=== PATIENT | female | born 1965 ===

== ENCOUNTER 2022-10-25 14:08 | Outpatient (CLI) | payer OTHER, SELFPAY ==
--- NOTE | 2022-10-25 14:20 | CRLHL7_ITS ---
For Patients: As a result of the Century Cures Act, medical imaging exams and procedure reports are released immediately into your electronic medical record. You may view this report before your referring provider. If you have questions, please contact your health care provider. BILATERAL SCREENING MAMMOGRAM WITH COMPUTER-AIDED DETECTION AND TOMOSYNTHESIS TECHNIQUE: CC and MLO views were obtained. These mammographic images have been obtained using full-field digital technique. These mammographic images were interpreted with the benefit of computer-aided detection. Breast tomosynthesis was used in this interpretation. COMPARISON FILM: 09/13/20, 03/14/18, 01/03/17. FINDINGS: There are scattered areas of fibroglandular density. IMPRESSION: There is no radiographic evidence for malignancy. ASSESSMENT: BI-RADS Category 1: Negative RECOMMENDATION: Routine screening mammogram in 1 year. A lay language report of this examination will be provided to the patient. CARSON YOO M.D. Diagnostic Radiologist [email or web address] DALIA/mark Transcribed: 11/05/2022, 1:[address]/Dictated by: Carson Yoo MD @ 11/05/2022 10:28:00 AM (Electronically Signed)
== END 2022-10-25 14:09 | disposition home or self-care (01) ==
LOC: MAMMO 14:13
PROVIDERS: Visit Provider Nurse Practitioner Family
DX: Z12.31 Encounter for screening mammogram for malignant neoplasm of breast (principal)
CPT/HCPCS: 77063; 77067

== ENCOUNTER 2024-04-14 03:30 | Emergency (ER) | payer OTHER, SELFPAY ==
--- OUTSIDE RECORDS SUMMARY | 2024-04-14 03:31 | XMS_ITS | Clinical Summary ---
Author Organization [facility] Address [place], [place] [address] Care Team Providers Care Parachute Crown Sewer Name Role Phone None Primary Care Provider Unavailabl e Allergies Active Allergy Reactions Criticality Noted Date Comments Penicillins Rash 02/12/2007 Medications gabapentin (NEURONTIN) 100 mg capsuleIndications :Cervical radiculopathy at C7 TAKE 1 CAPSULE BY MOUTH THREE TIMES DAILY 270 Capsule 1 1 Active triamcinolone (ARISTOCORT; KENALOG) 0.1 % creamIndications:R sonja and nonspecific skin eruption Apply topically to affected area(s) 2 times daily. 45 g 1 Active naproxen (ANAPROX DS) 550 mg tabletIndications: Pain in finger of both hands,Bilateral hand swelling Take 1 Tablet (550 mg) by mouth 2 times daily with meals. 60 Tablet 1 Active naproxen (ANAPROX DS) 550 mg tabletIndications: Pain in finger of both hands Take 1 Tablet (550 mg) by mouth every 12 hours if needed for Pain. 60 tablet. 1 1 Active naproxen (NAPROSYN) 500 mg tabletIndications: Pain in finger of both hands,Bilateral hand swelling Take 1 Tablet (500 mg) by mouth 2 times daily. 60 tablet. 1 1 Active Active Problems Problem Noted Date Diagnosed Date Cervical radiculopathy at C7 06/02/2020 Vitamin D deficiency 01/31/2020 Overview (01/31/2020): January 2020: vitamin D 20. Gallbladder polyp 12/23/2018 Overview (09/12/2020): 5 mm, noted on US Dec 2018. Recheck US in one year. US September 2020 polyp is stable. Follow up one year. Poor sleep hygiene 12/16/2018 Neck pain, chronic 11/12/2018 Overview (11/12/2018): Nov 2018: Cervical Spine Epidural steroid injection: left paracentral interlaminar approach BECKI (obstructive sleep apnea) 08/12/2018 Urinary, incontinence, stress female 11/24/2013 Mixed hearing loss, bilateral 11/13/2013 Varicose veins of leg with pain 10/30/2013 Prediabetes 12/15/2012 Trigger finger (acquired) Right 3rd digit 2011 BPPV (benign paroxysmal positional vertigo) 05/09 Tennis elbow 03/02/2009 Overview (10/27/2012): Right; now improved Left now involved 10/27/2012 Routine general medical exam ination at a health care facility 03/02/2009 ASCUS with positive high risk HPV cervical 04/08 Overview (02/22/2020): 1996 Cryocautery of cervix. 02/2008 ASCUS/HPV+ 03/2008 [place]: ECC Negative 09/2008 ASCUS/HPV+ 10/2011 ASCUS/HPV Negative 12/2016 NIL/HPV negative 01/29/20 NIL/HPV negative Plan: Routine screening Resolved Problems Problem Noted Date Diagnosed Date Resolved Date Carpal Tunnel Syndrome- bilateral 06/06/2009 10/27/2012 Carpal tunnel syndrome 05/18/200906/06 ASCUS on Pap smear 03/02/2009 7 Overview (03/02/2009): S/P Colposcopy 09/2008: Recheck Pap in 12 months Immunizations Name Administration Dates Next Due AMB Influenza, IIV3 (Age >=3 years)(Flu Clinic Only) 01/14/2013,01/22/2012,01/19/2009 AMB Influenza, IIV4 PF (=>6 mos Flulaval,Fluzone Fluarix)(Flu Clinic Only) 01/22/2020,12/31/2014 COVID-19 vaccine ([employer] 30mcg/0.3mL) PF, MDV 04/12/2021,07/28/2020,07/07/2020 Influenza, IIV3 (Age >=3 years) 01/11/2011,02/09 Influenza, IIV4 12/18/2018,03/14/2018,12/21/2013 Td (Age >=7 Years) 06/28/2003 Tdap 02/04/2012 Family History Medical History Relation Name Comments Diabetes Father Tripp Hyperlipidemia Mother Sofya Hypertension Mother Sofya Diabetes Paternal Grandmother Other Sister 3 Pilar kidney disease; now has seizure problems Cancer-breast No Family History Cancer-ovarian No Family History Relation Name Status Comments Brother 1 Brody Alive Brother 2 Tripp Alive Daughter 1 Alive Daughter 2 Alive Father Tripp Alive Half-Sister Alive Maternal Grandfather Maternal Grandmother Mother Sofya Paternal Grandfather Paternal Grandmother Sister 1 Marcia Alive Sister 2 Fiordaliza Alive Sister 3 Pilar Alive Son Alive Social History Tobacco Use Types Packs/Day Years Used Date Smoking Tobacco: Never Smokeless Tobacco: Never Tobacco Cessation:Counseling Given: Yes Alcohol Use Standard Drinks/Week Comments No 0 (1 standard drink = 0.6 oz pure alcohol) infrequent-- 1 drink every year. PHQ-2 Answer Date Recorded PHQ-2 TOTAL SCORE 0 01/29/2020 Social Connections Answer Date Recorded Frequency of Communication with Friends and Fami ly Not on file 04/08/2021 Financial Resource Strain Answer Date R ecorded Difficulty of Paying Living Expenses Not on file 04/08/2021 Difficulty of Paying Living Expenses Not on file 04/08/2021 Comments No Sex and Gender Information Value Date Recorded Sex Assigned at Not on file Legal Sex Female 5:19 AM CORE FINISHER Gender Identity Not on file Sexual Orientation Not on file Occupation Industry Job Start Date Job End Date work at home Not on file Not on file Not on file Obstetrics History Para Term AB IAB SAB Ectopic Multiple Livin g Live Births 4 3 3 0 1 0 1 0 0 3 Date Outcome GA Total Labor Labor/2nd/3rd Weight Sex Type Anes PTL Ksenia A1 A5 Name Clin SAB 1987 Term Comments:C Sec 1996 Term 2003 Term Last Filed Vital Signs Vital Sign Reading Time Taken Comments Blood Pressure 117/65 12/05/2022 5:14 PM CDT Pulse 91 12/05/2022 5:14 PM CDT Temperature 36.6 C (97.8 F) 12/05/2022 5:14 PM CDT Respiratory Rate 16 12/05/2022 5:14 PM CDT Oxygen Saturation 96% 12/05/2022 5:14 PM CDT Inhaled Oxygen Concentration - - Weight 61.2 kg (135 lb) 12/05/2022 5:14 PM CDT Height 147.5 cm (4' 10.07) 08/30/2020 3:08 PM C DT Body Mass Index 28.15 08/30/2020 3:08 PM CDT Plan of Treatment Health Maintenance Due Date Last Done Comments HIV for age 15-65 01/22/1979 Zoster (shingles) series for age 50+ (1 of 2) 01/22/2014 Depression screening for age 12+ 01/30/2021 01/31/2020, 01/29/2020, 03/17/2018, Additional history exists BMI (ht and wt on same day) for age 18+ 08/30/2021 08/30/2020, 01/29/2020, 12/18/2018, Additional history exists Mammogram for age 45-75 09/13/2021 09/14/19 21, 03/14/2018, 01/03/2017, Additional history exists Tetanus booster 02/03/2022 02/04/2012, 06/28/2003 COVID-19 vaccine series ( season) 2023 05/02/2022, 04/12/2021, 07/28/2020, Additional history exists Influenza for age 50-64 12/08/2023 01/22/20 20, 12/18/2018, 03/14/2018, Additional history exists Lipids for age 45-75 08/30/2025 08/30/2020, 01/26/2020, 01/26/2020, Additional history exists Pap test for age 21-65 08/03/2027 3, 08/02/2022, 01/29/2020, Additional history exists Colonoscopy through age 75 03/16/203003/16, 03/16/2020, 03/16/2020 RSV vaccine for adults or (1 - 1-dose 75+ series) 01/22/2039 Tdap Completed 02/04/2012 Hepatitis C screening for age 18-79 Completed 03/17/2018 Pneumococcal series for age 6-49 Aged Out No longer eligible based on patient's age to complete this topic Procedures Procedure Name Priority Date/Time Associated Diagnosis Comments HPV HIGH RISK Routine 08/02/2022 11:30 AM CDT XR MAMMO BILAT SCREENING Routine 09/13/2020 5:33 PM CDT Visit for screening mammogram LIPID PANEL W REFLEX MEASURED LDL Routine 08/30/2020 3:57 PM CDT Hypertriglyceridemi a COLONOSCOPY DIAGNOSTIC Routine 03/16/2020 9:13 AM CORE FINISHER Hematochezia ANTI HCV Routine 03/17/2018 11:28 AM CORE FINISHER Need for hepatitis C screening test from Last 3 Months or Most Recently Relevant to Health Maintenance Results * HPV HIGH RISK (08/02/2022 11:30 AM CDT) TYPE 16 Negative Negative 08/14/2022 5:31 AM CDT [facility] TYPE 18 Negative Negative 08/14/2022 5:31 AM CDT [facility] OTHER HIGH RISK TYPES Negative Negative 08/14/2022 5:31 AM CDT [facility] Other (Other) 08/02/2022 11: 30 AM CDT 08/10/2022 12:48 PM CDT Narrative [facility] - 08/14/2022 5:31 AM CDT HPV types 16, 18, 31, 33, 35, 39, 45, 51, 52, 56, 58, 59, 66 and 68 DNA were undetectable or below the pre-set threshold. Methodology: [employer] Cle[employer] 4800 HPV Test us Kaitlin Musa NP MICROBIOLOGY Final Resul t [facility] [address] [place] [address], [place] * XR MAMMO BILAT SCREENING (09/13/2020 5:33 PM CDT) Anatomical Region Laterality Modality BREASTS, Breast Left, Breast Right Bilateral Mammography Impressions 09/14/2020 2:06 PM CDT There is no radiographic evidence for malignancy. Recommend annual mammograms. MAMMOGRAM ASSESSMENT: ACR 2 Benign PATIENTS: You will also receive a letter with your examination results in an easy to read format. If you have questions about your results, please contact your referring provider. Narrative 09/14/2020 2:06 PM CDT XR MAMMO BILAT SCREENING [[id number]] CLINICAL HISTORY: This is an asymptomatic 55 y.o. patient. INDICATION FOR EXAM: Mammogram Screening. TECHNIQUE: CC & MLO views were obtained. This study was evaluated with the assistance of Computer-Aided Detection. COMPARISON FILMS: Yes [facility] FINDINGS: The breasts have scattered areas of fibroglandular density. No suspicious masses or microcalcifications. Benign appearing calcifications within both breasts. us Otoniel Loera MD MAMMO Final Res ult * (ABNORMAL) LIPID PANEL W REFLEX MEASURED LDL (08/30/2020 3:57 PM CDT) CHOLESTEROL,TOTAL 216(H) 100 - 199 mg/dL 08/30/2020 8:17 PM CDT [facility] TRIGLYCERIDES 135 <150 mg/dL 08/30/2020 8:17 PM CDT [facility] HDL CHOLESTEROL 62 >40 mg/dL 8:17 PM CDT [facility] NON-HDL CHOLESTEROL 154(H) <145 mg/dl 08/30/2020 8:17 PM CDT [facility] CHOL/HDL RATIO 3.48 <4.50 08/30/2020 8:17 PM CDT [facility] LDL CHOLESTEROL 127 <=130 mg/dL 08/30/2020 8:17 PM CDT [facility] VLDL CHOLESTEROL 27 mg/dL 08/31/19 8:17 PM CDT [facility] PROVIDER ORDERED STATUS RANDOM 08/30/2020 8:17 PM CDT [facility] Blood BLOOD SPECIMEN / Unknown Venipuncture / Unknown 08/30/2020 3:57 PM CDT 08/30/2020 3:57 PM CDT Mora SHANNON CHEMISTRY Final Resu lt [facility] [address] [place] [address], * COLONOSCOPY DIAGNOSTIC (03/16/2020 9:13 AM CORE FINISHER) Mora SHANNON GI PROCEDURE ORD Final Res ult * ANTI HCV [[id number]] (03/17/2018 11:28 AM CORE FINISHER) HEPATITIS C ANTIBODY Non-React shar Non-React shar 03/17/2018 7:59 PM CORE FINISHER [facility] Comment:Antibodies to HCV no t detected; does not exclude the possibility of exposure to HCV. Blood BLOOD SPECIMEN / Unknown Venipuncture / Unknown 03/17/2018 11:28 AM CORE FINISHER 03/17/2018 11:29 AM CORE FINISHER Alice Chairez MD SEND OUTS Final Resul t [facility] [address] [place] [address], from Last 3 Months or Most Recently Relevant to Health Maintenance Advance Directives * Full Code (Latest Code Status on File) Date Activated Date Inactivated Comments 12/17/2012 10:31 AM 12/17/2012 2:25 PM * Full Code Date Activated Date Inactivated Comments 12/17/2012 7:29 AM 12/17/2012 10:31 AM * Full Code Date Activated Date Inactivated Comments 09/22/2009 10:25 AM 09/23/2009 2:06 AM * Full Code Date Activated Date Inactivated Comments 06/16/2009 8:41 AM 06/17/2009 2:06 AM Care Teams Parachute Crown Sewer Relationship Specialty Start Date End Date None . PCP - General 12/05/22
--- OUTSIDE RECORDS SUMMARY | 2024-04-14 03:31 | XMS_ITS | Continuity of Care Document ---
Author Name [email or web address] Address Unknown Organization Unknown Address Unknown Encounters FILTER APPLIED:Only known Encounters with Admission Date within the last 5 years Encounter Location Admission Discharge Billing Code Trigonometry Teacher Carlos smith Outpatient [facility]
[2024-04-14 03:42] VITALS: BP 137/74; PULSE 109; RESP 16; TEMP 38.3; O2SAT 97; BMI 26.0
[2024-04-14 04:03] LABS: Appearance Urine Clear (Clear); Bilirubin Urine Negative (Negative); Blood Urine 2+ (Negative); Color Urine Yellow (Yellow); Glucose Urine Negative (Negative); Ketones Urine Negative (Negative); Leukocyte Esterase Urine Negative (Negative); Nitrite Urine Negative (Negative); Protein Urine Negative (Negative); Urobilinogen Urine 0.2 (0.2-1.0)
--- NOTE | 2024-04-14 04:15 | ED_ITS ---
HPI - General Adult General Chief complaint: Abdominal Pain Stated complaint: Fever chills, right side abdominal pain Time Seen by Provider: 04/14/24 03:31 Source: patient Mode of arrival: ambulatory Limitations: language barrier (Video print journalist used) History of Present Illness HPI narrative: 59-year-old female with no significant past medical history presents the emergency department with 18 hours of body aches, headache, mild nausea. Reports ?ovarian pain? but on more specific questioning it is bilateral lower abdominal pain that radiates to the left upper quadrant. No vomiting, no bloody stools, no diarrhea, no dysuria. No history of kidney stones. No known illness exposures, no trauma. Mainly concerned about the headache but has not tried taking any Tylenol or ibuprofen for it. No neurological changes. Mild cough and congestion. No obvious sick exposures. Past medical history benign per her report, no major long-term health problems. No prescription medications. Allergy to penicillin. ROS is notable for the generalized and GI symptoms as above, otherwise denies times 12 systems. Related Data Home Medications ?Medication ?Instructions ?Recorded ?Confirmed No Known Home Medications 04/14/24 04/14/24 Allergies Allergy/AdvReac Type Severity Reaction Status Date / Time Penicillins Allergy Rash Verified 04/14/24 03:47 Exam Const: Vital Signs, click to edit/add: Vital Signs - 24 hr 04/14/24 03:42 Temperature 100.9 F H Pulse Rate [Pulse Oximeter] 109 H Respiratory Rate 16 Blood Pressure [Ri ght Upper Arm] 137/74 Pulse Oximetry 97 Oxygen Delivery Me thod Room Air Documenting provider has reviewed patient's vital signs: yes Common normals: no apparent distress General appearance: cooperative, comfortable and well kempt HENMT: Common normals: normocephalic, moist oral mucous membranes and o ropharynx normal Head and scalp: normocephalic Eye: Common normals: conjunctivae normal General eye: normal appearance of both eyes Conjunctiva: conjunctiva(e) normal Neck & C-Spine: Common normals: full ROM and no lymphadenopathy Resp: Common normals: normal respiratory effort, no use of accessory muscles and clear to auscultation bilaterally Effort & inspection: able to speak in complete sentences Auscultation: clear to auscultation bilaterally Cardio: Common normals: regular rate, regular rhythm, S1 normal heart sound, S2 normal heart sound and no murmurs Rate: regular rate Rhythm: regular rhythm Heart sounds: S1 normal and S2 normal GI: Common normals: Normal to inspection, nondistended, normoactive bowel sounds present, soft to palpation, no hepatosplenomegaly and no masses Palpation: soft and no hepatosplenomegaly Other: Mild diffuse tenderness reported on exam. No rebound tenderness, guarding or mass. Back & Pelvis: Common normals: thoracic and lumbar spine normal to inspection Extremity: Common normals: normal to inspection and normal capillary refill Psych: Appearance: well kempt Attitude: engaged Insight: insight good Judgement: judgment good Skin: Common normals: no rashes or lesions noted General skin exam: no rashes or lesions noted Course Course ED Course: 5-year-old female with fever, headache and body aches suspicious for influenza A. Loss of cases in the community right now. I do not think that her abdominal pain is anything too serious but differential diagnosis includes colitis, urinary tract infection, kidney stone, pancreatitis, ovarian pain, amongst others. We do not have ultrasound available middle of the night and her exam is quite benign. I recommend some basic labs to ensure that there are no signs of significant intra-abdominal complication. Swabs for influenza, RSV and COVID. Urinalysis collected. Will give ibuprofen for headache and await findings. Reevaluation(s) Time of Reevaluation #1: 05:42 Reevaluation #1: Patient's headache improving after ibuprofen. Labs reviewed, reassuring. Counseled on small amount of hematuria, will need outpatient follow-up. Counseled on influenza. Work note given. Counseled on Tylenol and ibuprofen. Good candidate for Tamiflu. Rationale discussed. Risks and benefits reviewed. Alarm symptoms reviewed that would warrant ED presentation. All questions answered. Vital Signs Vital signs: Initial Vital Signs Temperature 100.9 F H 04/14/24 03:42 Temperature Source Temporal Artery Scan 04/14/24 03:42 Pulse Rate 109 H 04/14/24 03:42 Respiratory Rate 16 04/14/24 03:42 Blood Pressure 137/74 04/14/24 03:42 Blood Pressure Mean 95 04/14/24 03:42 Blood Pressure Position Sitting 04/14/24 03:42 Pulse Oximetry 97 04/14/24 03:42 Oxygen Delivery Method Room Air 04/14/24 03:42 Vital Signs Temperature 100.9 F H 04/14/24 03:42 Pulse Rate 109 H 04/14/24 03:42 Respiratory Rate 16 04/14/24 03:42 Blood Pressure 137/74 04/14/24 03:42 Pulse Oximetry 97 04/14/24 03:42 Oxygen Delivery Method Room Air 04/14/24 03:42 Temperature 100.9 F H 04/14/24 03:42 Pulse Rate 109 H 04/14/24 03:42 Respiratory Rate 16 04/14/24 03:42 Blood Pressure 137/74 04/14/24 03:42 Pulse Oximetry 97 04/14/24 03:42 Oxygen Delivery Method Room Air 04/14/24 03:42 Medications Administered Medications: Discontinued Medications Generic Name Dose Route Start Last Admin Trade Name Ema PRN Reason Stop Dose Admin Ibuprofen 600 mg 04/14/24 04:20 04/14/24 04:34 Ibuprofen 200 Mg Tablet PO 04/14/24 04:21 600 mg ONCE ONE Administration Medical Decision Making Lab Data Lab results reviewed: Yes I reviewed the patient's lab results Lab results narrative: Positive for influenza a, as expected. Labs: Lab Results 04/14/24 04/14/24 04/14/24 Range/Units 03:51 03:54 04:35 WBC 6.17 (4.50-11.00) K/uL RBC 4.77 (4.00-5.20) m/uL Hgb 13.0 (12.0-16.0) gm/dL Hct 40.0 (33.0-51.0) % MCV 84 (80-100) fL MCH 27 (26-34) pg MCHC 33 (32-36) gm/dL RDW Coeff of Susan 13.1 (11.5-15.5) % Plt Count 186 (140-440) K/uL Neut % (Auto) 75.3 H (42.0-72.0) % Lymph % (Auto) 11.5 L (20-44) % [place] % (Auto) 12.0 H (0.0-11.0) % Eos % (Auto) 0.8 (0.0-7.0) % Baso % (Auto) 0.2 (0.0-3.0) % Neut # (Auto) 4.60 (1.7-7.0) K/uL Lymph # (Auto) 0.70 L (0.90-2.90) K/uL [place] # (Auto) 0.70 (0.00-0.90) K/UL Eos # (Auto) 0.05 (0.00-0.50) K/uL Baso # (Auto) 0.01 (0.00-0.30) K/uL Abs Immat Gran (auto) 0.01 (0.00-0.30) K/uL Imm/Tot Granulo (auto) 0.2 % Sodium 138 (135-149) mmol/L Potassium 3.5 L (3.6-5.1) mmol/L Chloride 106 (96-114) mmol/L Carbon Dioxide 25 (20-32) mmol/L Anion Gap 7 (7-15) mEq/L BUN 14 (7-30) mg/dL Creatinine 0.5 (0.5-1.5) mg/dL Estimated Creat Clear 102.81 Estimated GFR 107 ml/min Glucose 108 (60-115) mg/dL Calcium 9.0 (8.4-10.6) mg/dL Total Bilirubin 0.3 (0.1-1.5) mg/dL AST 29 (12-35) U/L ALT 24 (4-35) U/L Alkaline Phosphatase 83 (40-150) U/L C-Reactive Protein 0.9 (0.5-1.0) mg/dL Total Protein 7.2 (6.0-8.3) g/dL Albumin 4.4 (3.3-5.0) g/dL Lipase 139 (23-300) U/L Urine Color Yellow (Yellow) Urine Appearance Clear (Clear) Urine pH 7.0 (5.0-8.5) Ur Specific [place] 1.020 (1.000-1.030) Urine Protein Negative (Negative) Urine Glucose (UA) Negative (Negative) Urine Ketones Negative (Negative) Urine Blood 2+ A (Negative) Urine Nitrite Negative (Negative) Urine Bilirubin Negative (Negative) Urine Urobilinogen 0.2 (0.2-1.0) Ur Leukocyte Esterase Negative (Negative) Urine RBC 0-2 (0-2) Urine WBC 0-2 (0-5) Ur Squamous Epith Cells Few (None-Few) Urine Bacteria None (None) SARS-CoV-2 (PCR) Negative SARS-CoV-2 (Negative) Influenza Type A (PCR) POSITIVE PCR FLU A A (Negative) Influenza Type B (PCR) Negative PCR FLU B (Negative) RSV (PCR) Negative PCR RSV (Negative) Discharge Plan Discharge Clinical Impression: Influenza A Patient Disposition: Home w/ Parent or Adult Condition: Stable Instructions: Influenza (DC) Additional Instructions: As we discussed, your exam was suspicious for influenza a, and your swabs did confirm this. Unfortunately, we are seeing a lot of cases of this right now. High fever, body aches, headache, nausea and chills are common. Symptoms typically last for 5-7 days. Since her symptoms have been present for less than 24 hours, your an excellent candidate for Tamiflu. This is an antiviral medicine that can shorten the duration and intensity of your influenza and make you less contagious to your family. 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 I would like for you to quarantine for the 1st 48 hours while you are on the medication but you may try to return to work on the if you are feeling quite a bit better. Remember that you will need to keep taking Tylenol and or ibuprofen to help with your headache and body ache. It may not eliminate your fever, which is not worrisome. Proper dosing for someone your size is 400 mg of ibuprofen every 6 hours and/or Tylenol 650 mg every 6 hours. Continue pushing fluids. Your urine test does show a trace amount of blood present. This is very common in is usually not of worry. I would like for you to get this rechecked in a few weeks by her primary care doctor at your next routine exam. If you do not have a primary care doctor, please schedule with 1 to have this rechecked. If there is still a trace amount of blood present, they would recommend further workup. But this tends to just go way and is usually part of another illness. If you have severe shortness of breath or severe weakness, please return to the emergency department. Activity Level: Activity as Tolerated Discharge Diet: Regular Prescriptions: No Action No Known Home Medications Follow Up/Referrals: Provider,Not a Local [Primary Care Provider] - Stand Alone Forms: Social Touch Info Instructions
--- OUTSIDE RECORDS SUMMARY | 2024-04-14 04:23 | XMS_ITS | Clinical Summary ---
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 [employer] Gender Identity Not on file Sexual Orientation [...] a COLONOSCOPY DIAGNOSTIC Routine 03/16/2020 9:13 AM [employer]ES [employer] Hematochezia ANTI HCV Routine 03/17/2018 11:28 AM [employer]ES [employer] Need for hepatitis C screening test from Last 3 Months or Most Recently Relevant to Health Maintenance Results * HPV HIGH RISK (08/02/2022 11:30 AM CDT) TYPE 16 Negative Negative 08/14/2022 5:31 AM CDT [facility] TYPE 18 Negative Negative 08/14/2022 5:31 AM CDT [facility] OTHER HIGH RISK TYPES Negative Negative 08/14/2022 5:31 AM CDT [facility] Other (Other) 08/02/2022 11: 30 AM CDT 08/10/2022 12:48 PM CDT Narrative [facility] - 08/14/2022 5:31 AM CDT HPV types 16, 18, 31, 33, 35, 39, 45, 51, 52, 56, 58, 59, 66 and 68 DNA were undetectable or below the pre-set threshold. Methodology: Pairin Cleo 4800 HPV Test us Kaitlin Musa NP MICROBIOLOGY Final Resul t [facility] [address] [place] [address], [place] * XR MAMMO BILAT SCREENING (09/13/2020 [...] 2:06 PM CDT XR MAMMO BILAT SCREENING [[id number]] CLINICAL HISTORY: This is an asymptomatic 55 y.o. patient. INDICATION FOR EXAM: Mammogram Screening. TECHNIQUE: CC & MLO views were obtained. This study was evaluated with the assistance of Computer-Aided Detection. COMPARISON FILMS: Yes [facility]/14/18 [facility]17 [facility] FINDINGS: The breasts have scattered areas of fibroglandular density. No suspicious masses or microcalcifications. Benign appearing calcifications within both breasts. us Otoniel Loera MD MAMMO Final Res ult * (ABNORMAL) LIPID PANEL W REFLEX MEASURED LDL (08/30/2020 3:57 PM CDT) CHOLESTEROL,TOTAL 216(H) 100 - 199 mg/dL 08/30/2020 8:17 PM CDT [facility] TRIGLYCERIDES 135 <150 mg/dL 08/30/2020 8:17 PM CDT [facility] HDL CHOLESTEROL 62 >40 mg/dL 8:17 PM CDT [facility] NON-HDL CHOLESTEROL 154(H) <145 mg/dl 08/30/2020 8:17 PM CDT [facility] CHOL/HDL RATIO 3.48 <4.50 08/30/2020 8:17 PM CDT [facility] LDL CHOLESTEROL 127 <=130 mg/dL 08/30/2020 8:17 PM CDT [facility] VLDL CHOLESTEROL 27 mg/dL 08/31/19 8:17 PM CDT [facility] PROVIDER ORDERED STATUS RANDOM 08/30/2020 8:17 PM CDT [facility] Blood BLOOD SPECIMEN / Unknown Venipuncture / Unknown 08/30/2020 3:57 PM CDT 08/30/2020 3:57 PM CDT Mora SHANNON CHEMISTRY Final Resu lt [facility] [address] [place] [address], * COLONOSCOPY DIAGNOSTIC (03/16/2020 9:13 AM SALES [employer]) Mora SHANNON GI PROCEDURE ORD Final Res ult * ANTI HCV [[id number]] (03/17/2018 11:28 AM SALES [employer]) HEPATITIS C ANTIBODY Non-React shar Non-React shar 03/17/2018 7:59 PM [employer] [facility] Comment:Antibodies to HCV no t detected; does not exclude the possibility of exposure to HCV. Blood BLOOD SPECIMEN / Unknown Venipuncture / Unknown 03/17/2018 11:28 AM [employer]ES [employer] 03/17/2018 11:29 AM [employer]ES [employer] Alice Chairez MD SEND OUTS Final Resul t [facility] [address] [place] [address], from Last 3 Months or Most Recently [...] 8:41 AM 06/17/2009 2:06 AM Care Teams Wagon Driver Relationship Specialty Start Date End Date None . PCP - General 12/05/22
--- OUTSIDE RECORDS SUMMARY | 2024-04-14 04:23 | XMS_ITS | Continuity of Care Document ---
Author Name [facility] User [facility] Address Unknown Organization Unknown Address Unknown Encounters FILTER APPLIED:Only known Encounters with Admission Date within the last 5 years Encounter Location Admission Discharge Billing Code Hearing Therapy Teacher Carlos smith Outpatient [facility] Outpatient [facility]
[2024-04-14 04:28] LABS: RBC Urine 0-2 (0-2); Squamous Epithelial Cell Urine Few (None-Few); WBC Urine 0-2 (0-5)
[2024-04-14] MEDS: IBUPROFEN 200 MG TABLET 600 MG PO (04:34)
[2024-04-14 04:39] LABS: PCR FLU A POSITIVE PCR FLU A (Negative); PCR FLU B Negative PCR FLU B (Negative); PCR RSV Negative PCR RSV (Negative); SARS PCR* Negative SARS-CoV-2 (Negative)
[2024-04-14 04:42] LABS: Lymphocytes Percent Auto 11.5 % (20-44); Mean Corpuscular HGB Conc 33 gm/dL (32-36); Mean Corpuscular Hemoglobin 27 pg (26-34); Mean Corpuscular Volume 84 fL (80-100); Neutrophils Percent Auto 75.3 % (42.0-72.0); Platelet Count* 186 K/uL (140-440); RDW Coefficient of Variation % 13.1 % (11.5-15.5); Red Blood Count 4.77 m/uL (4.00-5.20); White Blood Count* 6.17 K/uL (4.50-11.00)
[2024-04-14 04:43] LABS: Basophils Absolute Auto 0.01 K/uL (0.00-0.30); Basophils Percent Auto 0.2 % (0.0-3.0); Eosinophils Absolute Auto 0.05 K/uL (0.00-0.50); Eosinophils Percent Auto 0.8 % (0.0-7.0); Immature Granulocytes Abs Auto 0.01 K/uL (0.00-0.30); Immature Granulocytes Pct Auto 0.2 %; Slide Review Reflex No
[2024-04-14 04:55] LABS: Albumin* 4.4 g/dL (3.3-5.0); Chloride* 106 mmol/L (96-114)
[2024-04-14 04:56] LABS: Potassium* 3.5 mmol/L (3.6-5.1); Sodium* 138 mmol/L (135-149)
[2024-04-14 04:58] LABS: Bilirubin Total* 0.3 mg/dL (0.1-1.5); Creatinine* 0.5 mg/dL (0.5-1.5); Est. Creatinine Clearance* 102.81; Estimated Glomerular Filt Rate 107 ml/min
[2024-04-14 04:59] LABS: Alanine Aminotransferase* 24 U/L (4-35); Alkaline Phosphatase* 83 U/L (40-150); Anion Gap 7 mEq/L (7-15); Aspartate Amino Transferase* 29 U/L (12-35); Blood Urea Nitrogen* 14 mg/dL (7-30); Carbon Dioxide* 25 mmol/L (20-32); Glucose* 108 mg/dL (60-115); Lipase* 139 U/L (23-300); Total Protein* 7.2 g/dL (6.0-8.3)
[2024-04-14 05:01] LABS: C Reactive Protein* 0.9 mg/dL (0.5-1.0)
[2024-04-14 05:30] VITALS: PULSE 106; RESP 16; TEMP 37.6; O2SAT 100
== END 2024-04-14 06:10 | disposition home or self-care (01) ==
PROVIDERS: Emergency Provider Family Medicine
DX: J09.X2 Influenza due to identified novel influenza A virus with other respiratory manifestations (principal)
CPT/HCPCS: 36415; 80053; 81001; 83690; 85025; 86140; 87631; 99283; 99284; A9270